=== PATIENT | male | born 1970 | race Caucasian/White ===

== ENCOUNTER 2019-04-07 16:26 | Emergency (ER) | payer SELFPAY ==
[~2019-04-07] VITALS: Ht 167.6 cm; Wt 73.0 kg
[2019-04-07 16:33] VITALS: BP 118/72
== END 2019-04-07 17:12 | disposition left against medical advice (07) ==
LOC: ER 16:26
DX: F10.129 Alcohol abuse with intoxication, unspecified (principal); Y90.9 Presence of alcohol in blood, level not specified
CPT/HCPCS: 99283

== ENCOUNTER 2019-07-14 13:16 | Emergency (ER) | payer MEDICAID ==
[~2019-07-14] VITALS: Ht 160 cm; Wt 77.0 kg
[2019-07-14] MEDS ORDERED: MORPHINE SULFATE 4 MG/ML CPJ (NOT FOR IM USE) IV ONE (13:45)
[2019-07-14] MEDS ORDERED: SODIUM CHLORIDE 0.9% 1,000 ML IV ONE (13:45)
[2019-07-14] MEDS ORDERED: KETOROLAC 30MG/ML VIAL IV ONE (13:45)
[2019-07-14 14:10] LABS: EOSINOPHILS % 1.6 % (0.0-5.0); HEMATOCRIT. 45.1 % (42.0-52.0); HEMOGLOBIN. 15.5 g/dL (14.0-18.0); LYMPHOCYTES % 20.6 % (20.0-50.0); MEAN CORPUSCULAR HEMOGLOBIN 32.1 pg (28.0-32.0); MEAN CORPUSCULAR VOLUME 93.6 fL (80.0-94.0); MEAN PLATELET VOLUME 7.1 fl (7.4-10.4); NEUTROPHILS % 70.8 % (40.0-76.0); PLATELET 370 x1000/uL (130-400); RED BLOOD CELL COUNT 4.82 mill/uL (4.7-6.1); RED CELL DISTRIBUTION WIDTH 14.6 % (11.6-14.6)
[2019-07-14] MEDS ORDERED: DIATR MEGLU/DIATRIZOATE SOLN 30ML ONE (14:13)
[2019-07-14 14:25] LABS: CLARITY URINE CLEAR (CLEAR); KETONES URINE NEGATIVE (NEGATIVE); LEUKOCYTE ESTERASE URINE NEGATIVE (NEGATIVE); NITRITE URINE NEGATIVE (NEGATIVE); OCCULT BLOOD URINE NEGATIVE (NEGATIVE); PH URINE 6.5 (4.5-8.0); PROTEIN URINE NEGATIVE (NEGATIVE); SPECIFIC GRAVITY URINE 1.002 (1.005-1.030); UROBILINOGEN URINE 0.2 E.U./dL (0.2-1.0)
[2019-07-14 14:26] LABS: COLOR URINE PALE YELLOW (YELLOW)
[2019-07-14 14:56] LABS: CHLORIDE 103 mEq/L (98-107)
[2019-07-14 18:52] VITALS: BP 134/83
== END 2019-07-14 19:02 | disposition home or self-care (01) ==
LOC: ER 13:16
DX: R10.9 Unspecified abdominal pain (principal)
CPT/HCPCS: 36415; 76870; 80053; 81003; 83690; 85025; 85610; 93976; 96374; 96375; 99284; J1885; J2270; J7030; Q9963; Z7610